=== PATIENT | female | born 1990 | race African-American/Black ===

== ENCOUNTER 2017-03-14 19:46 | Emergency (ER) | payer OTHER ==
[~2017-03-14] VITALS: Ht 157.5 cm; Wt 70.0 kg
[~2017-03-14 19:46] MED LIST: AUGM875T PO
[2017-03-14 19:48] VITALS: BP 152/82; PULSE 81; RESP 16; TEMP 98.1; O2SAT 99
[2017-03-14] MEDS ORDERED: PROPARACAINE HCL 0.5% OPHT SOLN 15 ML BTL EACH EYE ONE (22:00)
[2017-03-14] MEDS ORDERED: POLY10O EACH EYE (22:05)
--- NOTE | 2017-03-14 22:05 | PD ---
HPI Chief Complaint: Eye Problems/Injury Time Seen by Provider: 21:30 Travel History International Travel<30 days: No Contact w/Intl Traveler<30days: No Traveled to known affect area: No History of Present Illness HPI patient is a 27-year-old female contact wearer presents the emergency department with redness of her right eye for the past few days. Patient states gradually worsening itching. She hasn't noticed any decreased in visual acuity. She has not been wearing her right contact ever since her eye turned red however she still is wearing her left contact his had eye seems to be unaffected to her. Denies any fever denies any cough congestion. Symptoms are moderate, gradually worsening, right eye, associated with itchiness. PFSH Past Medical History Medical History: Denies Significant Hx Diminished Hearing: No Immunizations Current: Yes ?: Unknown LMP: 01/06/17 : 1 Para: 1 Past Surgical History Section: Yes Social History Alcohol Use: No Tobacco Use: No Substance Use: No Allergies-Medications (Allergen,Severity, Reaction): Coded Allergies: No Known Allergies (Verified , 03/14/17) Reported Meds & Prescriptions Reported Meds & Active Scripts Active Polytrim Opth Drops (Polymyxin/Trimethoprim Sulfate) 10,000-0.1 Unit/Ml-% Soln 1 Drop EACH EYE Q6HR Review of Systems Except as stated in HPI: all other systems reviewed are Neg Physical Exam Narrative GENERAL: Well-nourished, well-developed patient. SKIN: Focused skin assessment warm/dry. HEAD: Normocephalic. EYES: No scleral icterus. Significant scleral injection of the right eye, there is also injection of the conjunctiva of the palpebral surface. No surrounding edema or cellulitis. I checked movements are intact. Fluorescein staining shows no uptake in either eye. Left eye is unaffected. NECK: Supple, trachea midline. No JVD or lymphadenopathy. CARDIOVASCULAR: Regular rate and rhythm without murmurs, gallops, or rubs. RESPIRATORY: Breath sounds equal bilaterally. No accessory muscle use. GASTROINTESTINAL: Abdomen soft, non-tender, nondistended. MUSCULOSKELETAL: No cyanosis, or edema. BACK: Nontender without obvious deformity. No CVA tenderness. Data Data Last Documented VS Vital Signs Date Time Temp Pulse Resp B/P (MAP) Pulse Ox O2 Delivery O2 Flow Rate FiO2 03/14/17 22:15 03/14/17 19:48 98.1 81 16 99 Room Air Orders Orders Proparacaine 0.5% Opth Soln (Alcaine 0.5 (03/14/17 22:00) MDM Medical Decision Making Medical Screen Exam Complete: Yes Emergency Medical Condition: Yes Differential Diagnosis viral conjunctivitis, bacterial conjunctivitis, contact use, foreign body, corneal abrasion. Narrative Course Patient roomed emergency department, appears to have uncomplicated viral conjunctivitis. Nursing staining negative. Will be covered with Polytrim drops. Discussed with her no contacts until at least a week after the redness resolved. 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 Diagnosis Primary Impression: Conjunctivitis Qualified Codes: H10.31 - Unspecified acute conjunctivitis, right eye Additional Instructions: Do not wear contact lens in her right eye until the redness is been resolved for a week. Wash hands frequently. Med/Other Pt SpecificInfo: Prescription(s) given Scripts Polymyxin B-Trimethoprim Opth Drops (Polytrim Opth Drops) 10,000-0.1 Unit/Ml-% Soln 1 DROP EACH EYE Q6HR for Mgmt Bacterial Infection, #1 BOTTLE 0 Refills Prov: Mars Cee MD 03/14/17 Disposition: 01 DISCHARGE HOME Condition: Stable Mars Cee MD Mar 14, 2017 22:05
== END 2017-03-14 22:18 | disposition home or self-care (01) ==
LOC: NEPD 19:46
DX: H10.31 Unspecified acute conjunctivitis, right eye (principal)
CPT/HCPCS: 99283

== ENCOUNTER 2017-05-22 12:04 | Emergency (ER) | payer OTHER ==
[~2017-05-22] VITALS: Ht 157.5 cm; Wt 68.0 kg
[~2017-05-22 12:04] MED LIST changes: -AUGM875T PO; +POLY10O EACH EYE
[2017-05-22 12:06] VITALS: BP 137/96; PULSE 99; RESP 16; TEMP 100; O2SAT 98
--- NOTE | 2017-05-22 12:15 | PD ---
HPI Chief Complaint: Abdominal Pain Time Seen by Provider: 12:15 Travel History International Travel<30 days: No Contact w/Intl Traveler<30days: No Traveled to known affect area: No History of Present Illness HPI 27-year-old female presents to emergency department for evaluation of nausea, vomiting, epigastric pain since this morning. Pain is moderate in intensity. It does not radiate anywhere. It is worse after vomiting. Patient has had subjective fever and chills. No diarrhea. No urinary symptoms. Patient states that she does have some mild urinary incontinence when she does vomit. Denies any cough or chest congestion. No other symptoms to report. She has not had her menstrual cycle since December however was recently sent to [facility] for a transvaginal ultrasound which was done yesterday. [facility] Past Medical History Medical History: Denies Significant Hx Diminished Hearing: No Immunizations Current: Yes ?: Not LMP: 01/06 : 1 Para: 1 Past Surgical History Section: Yes Social History Alcohol Use: No Tobacco Use: No Substance Use: No Allergies-Medications (Allergen,Severity, Reaction): Coded Allergies: No Known Allergies (Verified , 03/14/17) Reported Meds & Prescriptions Reported Meds & Active Scripts Active Zofran Odt (Ondansetron Odt) 4 Mg Tab 4 Mg SL Q6HR PRN Omeprazole 40 Mg Cap 40 Mg PO DAILY 14 Days Polytrim Opth Drops (Polymyxin/Trimethoprim Sulfate) 10,000-0.1 Unit/Ml-% Soln 1 Drop EACH EYE Q6HR Review of Systems Except as stated in HPI: all other systems reviewed are Neg Physical Exam Narrative GENERAL: Well-nourished female patient, lying in bed in no acute distress SKIN: Focused skin assessment warm/dry. HEAD: Atraumatic. Normocephalic. EYES: Pupils equal and round. No scleral icterus. No injection or drainage. ENT: No nasal bleeding or discharge. Mucous membranes pink and moist. NECK: Trachea midline. No JVD. CARDIOVASCULAR: Elevated rate and rhythm. No murmur appreciated. RESPIRATORY: No accessory muscle use. Clear to auscultation. Breath sounds equal bilaterally. GASTROINTESTINAL: Abdomen soft, nondistended. Epigastric tenderness to palpation. Hepatic and splenic margins not palpable. MUSCULOSKELETAL: No obvious deformities. No clubbing. No cyanosis. No edema. NEUROLOGICAL: Awake and alert. No obvious cranial nerve deficits. Motor grossly within normal limits. Normal speech. PSYCHIATRIC: Appropriate mood and affect; insight and judgment normal. Data Data Last Documented VS Vital Signs Date Time Temp Pulse Resp B/P (MAP) Pulse Ox O2 Delivery O2 Flow Rate FiO2 05/22/17 12:06 100.0 99 16 137/96 (110) 98 Orders Orders Complete Blood Count With Diff (05/22/17 12:21) Comprehensive Metabolic Panel (05/22/17 12:21) Prothrombin Time / Inr (Pt) (05/22/17 12:21) Act Partial Throm Time (Ptt) (05/22/17 12:21) Urinalysis - C+S If Indicated (05/22/17 12:21) Iv Access Insert/Monitor (05/22/17 12:21) Ecg Monitoring (05/22/17 12:21) Oximetry (05/22/17 12:21) Ondansetron Inj (Zofran Inj) (05/22/17 12:30) Sodium Chlor 0.9% 1000 Ml Inj (Ns 1000 M (05/22/17 12:21) Sodium Chloride 0.9% Flush (Ns Flush) (05/22/17 12:30) Ed Urine Pregnancytest Poc (05/22/17 12:21) Potassium Chloride (Kcl) (05/22/17 13:15) Potassium Chloride (Kcl) (05/22/17 13:15) Ed Discharge Order (05/22/17 13:25) Prochlorperazine Inj (Compazine Inj) (05/22/17 13:45) Diphenhydramine Inj (Benadryl Inj) (05/22/17 13:45) Potassium Chloride Eff (K-Lyte Cl Eff) (05/22/17 13:45) Labs Laboratory Tests Test 05/22/17 12:31 White Blood Count 10.8 TH/MM3 Red Blood Count 4.72 MIL/MM3 Hemoglobin 12.8 GM/DL Hematocrit 39.0 % Mean Corpuscular Volume 82.5 FL Mean Corpuscular Hemoglobin 27.2 PG Mean Corpuscular Hemoglobin Concent 32.9 % Red Cell Distribution Width 14.1 % Platelet Count 283 TH/MM3 Mean Platelet Volume 8.6 FL Neutrophils (%) (Auto) 90.4 % Lymphocytes (%) (Auto) 4.3 % Monocytes (%) (Auto) 4.9 % Eosinophils (%) (Auto) 0.2 % Basophils (%) (Auto) 0.2 % Neutrophils # (Auto) 9.8 TH/MM3 Lymphocytes # (Auto) 0.5 TH/MM3 Monocytes # (Auto) 0.5 TH/MM3 Eosinophils # (Auto) 0.0 TH/MM3 Basophils # (Auto) 0.0 TH/MM3 CBC Comment DIFF FINAL Differential Comment Prothrombin Time 11.3 SEC Prothromb Time International Ratio 1.1 RATIO Activated Partial Thromboplast Time 25.7 SEC Urine Color YELLOW Urine Turbidity HAZY Urine pH 5.5 Urine Specific Anthony 1.027 Urine Protein TRACE mg/dL Urine Glucose (UA) NEG mg/dL Urine Ketones 10 mg/dL Urine Occult Blood NEG Urine Nitrite NEG Urine Bilirubin NEG Urine Urobilinogen LESS THAN 2.0 MG/DL Urine Leukocyte Esterase NEG Urine RBC LESS THAN 1 /hpf Urine WBC 4 /hpf Urine Squamous Epithelial Cells 8 /hpf Urine Bacteria OCC /hpf Urine Mucus FEW /lpf Microscopic Urinalysis Comment CULT NOT INDICATED Blood Urea Nitrogen 16 MG/DL Creatinine 0.56 MG/DL Random Glucose 112 MG/DL Total Protein 8.2 GM/DL Albumin 3.9 GM/DL Calcium Level 8.5 MG/DL Alkaline Phosphatase 49 U/L Aspartate Amino Transf (AST/SGOT) 15 U/L Alanine Aminotransferase (ALT/SGPT) 19 U/L Total Bilirubin 0.4 MG/DL Sodium Level 140 MEQ/L Potassium Level 3.1 MEQ/L Chloride Level 105 MEQ/L Carbon Dioxide Level 27.2 MEQ/L Anion Gap 8 MEQ/L Estimat Glomerular Filtration Rate 157 ML/MIN [facility] [place] Medical Decision Making Medical Screen Exam Complete: Yes Emergency Medical Condition: Yes Medical Record Reviewed: Yes Differential Diagnosis Gastritis versus indigestion versus pancreatitis versus cholecystitis Narrative Course A 27-year-old female presents to the emergency department for evaluation nausea , vomiting, epigastric pain. Patient appears without distress. She has had a low-grade temperature. She does have epigastric tenderness to palpation. Patient is treated for pain and nausea. She is given IV fluids. Laboratory Tests Test 05/22/17 12:31 White Blood Count 10.8 TH/MM3 Red Blood Count 4.72 MIL/MM3 Hemoglobin 12.8 GM/DL Hematocrit 39.0 % Mean Corpuscular Volume 82.5 FL Mean Corpuscular Hemoglobin 27.2 PG Mean Corpuscular Hemoglobin Concent 32.9 % Red Cell Distribution Width 14.1 % Platelet Count 283 TH/MM3 Mean Platelet Volume 8.6 FL Neutrophils (%) (Auto) 90.4 % Lymphocytes (%) (Auto) 4.3 % Monocytes (%) (Auto) 4.9 % Eosinophils (%) (Auto) 0.2 % Basophils (%) (Auto) 0.2 % Neutrophils # (Auto) 9.8 TH/MM3 Lymphocytes # (Auto) 0.5 TH/MM3 Monocytes # (Auto) 0.5 TH/MM3 Eosinophils # (Auto) 0.0 TH/MM3 Basophils # (Auto) 0.0 TH/MM3 CBC Comment DIFF FINAL Differential Comment Prothrombin Time 11.3 SEC Prothromb Time International Ratio 1.1 RATIO Activated Partial Thromboplast Time 25.7 SEC Urine Color YELLOW Urine Turbidity HAZY Urine pH 5.5 Urine Specific Anthony 1.027 Urine Protein TRACE mg/dL Urine Glucose (UA) NEG mg/dL Urine Ketones 10 mg/dL Urine Occult Blood NEG Urine Nitrite NEG Urine Bilirubin NEG Urine Urobilinogen LESS THAN 2.0 MG/DL Urine Leukocyte Esterase NEG Urine RBC LESS THAN 1 /hpf Urine WBC 4 /hpf Urine Squamous Epithelial Cells 8 /hpf Urine Bacteria OCC /hpf Urine Mucus FEW /lpf Microscopic Urinalysis Comment CULT NOT INDICATED Blood Urea Nitrogen 16 MG/DL Creatinine 0.56 MG/DL Random Glucose 112 MG/DL Total Protein 8.2 GM/DL Albumin 3.9 GM/DL Calcium Level 8.5 MG/DL Alkaline Phosphatase 49 U/L Aspartate Amino Transf (AST/SGOT) 15 U/L Alanine Aminotransferase (ALT/SGPT) 19 U/L Total Bilirubin 0.4 MG/DL Sodium Level 140 MEQ/L Potassium Level 3.1 MEQ/L Chloride Level 105 MEQ/L Carbon Dioxide Level 27.2 MEQ/L Anion Gap 8 MEQ/L Estimat Glomerular Filtration Rate 157 ML/MIN Patient's potassium is 3.1. This is repleted in the emergency department. Patient is tolerating by mouth. Epigastric pain has been relieved some but is not completely gone. Patient is counseled on care. She is discharged home at this time. She agrees to return immediately with any acute worsening symptoms. Diagnosis Primary Impression: Gastritis Qualified Codes: K29.00 - Acute gastritis without bleeding Patient Instructions: Diet for Stomach Ulcers and Gastritis (ED), General Instructions Additional Instructions: Avoid acidic and abrasive feeds Follow-up with a primary care provider Return immediately with any acute worsening of symptoms Med/Other Pt SpecificInfo: Prescription(s) given Scripts Ondansetron Odt (Zofran Odt) 4 Mg Tab 4 MG SL Q6HR Y for Nausea/Vomiting, #10 TAB 0 Refills Prov: Gina Mcduffie 05/22/17 Omeprazole (Omeprazole) 40 Mg Cap 40 MG PO DAILY for 14 Days, #14 CAP 0 Refills Prov: Gina Mcduffie 05/22/17 Disposition: 01 DISCHARGE HOME Condition: Stable Gina Mcduffie May 22, 2017 12:15
[2017-05-22] MEDS ORDERED: SODIUM CHLOR 0.9% 1000 ML INJ 1,000 ML IV SCH (12:21)
[2017-05-22] MEDS ORDERED: SODIUM CHLORIDE 0.9% FLUSH 10 ML FLUSH IV FLUSH PRN (12:30)
[2017-05-22] MEDS ORDERED: ONDANSETRON HCL 4 MG/2 ML VIAL IVP ONE (12:30)
[2017-05-22 12:39] LABS: AUTOMATED NEUTROPHIL # 9.8 TH/MM3 (1.8-7.7); BASOPHIL % 0.2 % (0.0-2.0); EOSINOPHIL % 0.2 % (0.0-4.0); HEMO FLAGS DIFF FINAL; LYMPH % 4.3 % (9.0-44.0); LYMPHOCYTE # 0.5 TH/MM3 (1.0-4.8); MEAN CELL VOLUME 82.5 FL (80.0-100.0); MEAN CORPUSCULAR HEMOGLOBIN 27.2 PG (27.0-34.0); MEAN CORPUSCULAR HGB CONC 32.9 % (32.0-36.0); MONO % 4.9 % (0.0-8.0); NEUT % 90.4 % (16.0-70.0); PLATELET COUNT 283 TH/MM3 (150-450); RED BLOOD COUNT 4.72 MIL/MM3 (4.00-5.30); RED CELL DISTRIBUTION WIDTH 14.1 % (11.6-17.2); WHITE BLOOD COUNT 10.8 TH/MM3 (4.0-11.0)
[2017-05-22 13:03] LABS: ALT (GPT) 19 U/L (10-53); ANION GAP 8 MEQ/L (5-15); APTT (PATIENT) 25.7 SEC (24.3-30.1); AST (GOT) 15 U/L (15-37); BICARBONATE 27.2 MEQ/L (21.0-32.0); BLOOD UREA NITROGEN 16 MG/DL (7-18); CHLORIDE 105 MEQ/L (98-107); GLOMERULAR FILTRATION RATE 157 ML/MIN (>89); INTERNATIONAL NORMALIZED RATIO 1.1 RATIO; POTASSIUM 3.1 MEQ/L (3.5-5.1); PROTHROMBIN TIME - PATIENT 11.3 SEC (9.8-11.6); SODIUM (NA) 140 MEQ/L (136-145)
[2017-05-22 13:05] LABS: ALKALINE PHOSPHATASE 49 U/L (45-117); TOTAL BILIRUBIN ADULT 0.4 MG/DL (0.2-1.0)
[2017-05-22 13:10] LABS: BACTERIA, URINE OCC /hpf; BLOOD, URINE NEG (NEG); COMMENT (UR) CULT NOT INDICATED; CULTURE IF INDICATED CULT NOT INDICATED; GLUCOSE,URINE NEG (NEG); KETONE, URINE 10 mg/dL (NEG); MUCUS URINE FEW /lpf (OCC); NITRITE,URINE NEG (NEG); PH, URINE 5.5 (5.0-8.5); SQUAMOUS EPITHELIAL CELL URINE 8 /hpf (0-5); URINE COLOR YELLOW (YELLW/STRAW)
[2017-05-22] MEDS ORDERED: POTASSIUM CHLORIDE 10 MEQ CONTROLLED RELEASE TAB PO ONE ×2 (13:15)
[2017-05-22] MEDS ORDERED: ZOFR4TAB3 SL (13:27)
[2017-05-22] MEDS ORDERED: OMEP40CA2 PO (13:27)
[2017-05-22] MEDS ORDERED: POTASSIUM CHLORIDE 25 MEQ EFFERVESCENT TAB PO ONE (13:45)
[2017-05-22] MEDS ORDERED: PROCHLORPERAZINE INJ 10 MG/2 ML VIAL IV PUSH ONE (13:45)
[2017-05-22] MEDS ORDERED: diphenhydrAMINE HCL 50 MG/ML VIAL IV PUSH ONE (13:45)
== END 2017-05-22 14:23 | disposition home or self-care (01) ==
LOC: NEPE 12:04
DX: K29.00 Acute gastritis without bleeding (principal)
CPT/HCPCS: 80053; 81001; 84703; 85025; 85610; 85730; 96374; 96375; 99284; J0780; J1200; J2405; J7030